=== PATIENT | female | born 2000 | race Caucasian/White ===

== ENCOUNTER 2019-05-26 12:30 | Emergency (ER) | payer OTHER ==
[2019-05-26 12:42] VITALS: BP 109/73; PULSE 81; TEMP 99; BMI 20.6
--- NOTE | 2019-05-26 13:50 | PDOC ---
History of Present Illness - General Chief Complaint: Pain Stated Complaint: LEFT EAR ACHE 2 DAYS Time Seen by Provider: 05/26/19 13:23 - History of Present Illness Initial Comments: 05/26/19 16:41 Chief complaint: Pain left ear HPI: Patient complains of pain in the left ear for several days. Thinks that it may be wax accumulation. Has been cleaning her ears with Q-tips. No URI symptoms or decreased hearing, tinnitus. Review of systems: Denies fever/chills, URI symptoms other than pain in left ear , sore throat, cough, chest pain, shortness of breath, abdominal pain, nausea, vomiting, diarrhea, visual or focal neurologic symptoms, unsteadiness of gait. Denies urinary tract symptoms, vaginal bleeding or discharge. Past medical history: Healthy female without serious medical or surgical problems past or present. No medications Social/family history reviewed and noncontributory Physical exam: Alert and oriented well-developed well-nourished no acute distress cheerful and cooperative ENT clear except for mild erythema and retraction of the left TM. Ear mildly irritated without induration or purulence, probably due to vigorous use of Q- tips Neck supple without bruit mass or nodes Lungs clear CV regular without murmur or gallop Abdomen benign Neurological intact. Hearing appears to be intact and symmetric Impression: Eustachian tube dysfunction, mild otitis externa Plan: Analgesics, Cortisporin otic, follow-up ENT specialist if no improvement 1 week. Fully ambulatory and in no severe pain or other distress at discharge with friend to follow-up as directed Past History - Past Medical History Allergies/Adverse Reactions: Allergies Allergy/AdvReac Type Severity Reaction Status Date / Time No Known Allergies Allergy Verified 05/26/19 12:32 Home Medications: Ambulatory Orders Neomycin/Polymyxn/Hc [Cortisporin Otic Suspenstion -] 3 drop Q4HWA #1 bottle 05/26/19 COPD: No Other medical history: DENIES - Psycho Social/Smoking Cessation Hx Smoking Status: No Smoking History: Never smoked Have you smoked in the past 12 months: No Information on smoking cessation initiated: No Hx Alcohol Use: No Drug/Substance Use Hx: No Substance Use Type: None *Physical Exam - Vital Signs Last Vital Signs Temp Pulse Resp BP Pulse Ox 99 F 81 16 109/73 97 05/26/19 12:31 05/26/19 12:31 05/26/19 12:31 05/26/19 12:31 05/26/19 12:31 Discharge - Discharge Information Problems reviewed: Yes Clinical Impression/Diagnosis: Eustachian tube dysfunction Qualifiers: Laterality: left Qualified Code(s): H69.82 - Other specified disorders of Eustachian tube, left ear Condition: Stable Disposition: HOME - Admission No - Additional Discharge Information Prescriptions: Neomycin/Polymyxn/Hc [Cortisporin Otic Suspenstion -] 3 drop Q4HWA #1 bottle - Follow up/Referral Referrals: Madelaine Arrieta MD [Primary Care Provider] - 3 days - Patient Discharge Instructions Patient Printed Discharge Instructions: DI for Eustachian Tube Dysfunction- Adult Additional Instructions: Take Tylenol, ibuprofen, Advil, Motrin, or Aleve for severe pain. Use eardrops as directed. See primary physician or see ENT specialist if there is no improvement Stay out of the cold and refrain from attempting to clean the ears or using Q- tips or other instruments, as this could result in infection. - Post Discharge Activity
== END 2019-05-26 14:06 | disposition home or self-care (01) ==
LOC: FER 12:30
DX: H69.82 Other specified disorders of Eustachian tube, left ear (principal)
CPT/HCPCS: 99282-25

== ENCOUNTER 2020-09-07 01:15 | Emergency (ER) | payer OTHER ==
[2020-09-07 01:24] VITALS: BP 117/78; PULSE 88; TEMP 98; BMI 24.1
== END 2020-09-07 02:04 | disposition home or self-care (01) ==
LOC: FER 01:15
DX: S93.602A Unspecified sprain of left foot, initial encounter (principal)
CPT/HCPCS: 73630-TC-LT; 99283-25